=== PATIENT | male | born 1985 | race Caucasian/White ===

== ENCOUNTER 2020-09-02 20:12 | Emergency (ER) | payer BC, SELFPAY ==
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
[2020-09-02 20:16] VITALS: BP 124/56; PULSE 75; RESP 18; TEMP 36.6; O2SAT 99
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
[2020-09-02] MEDS: Ibuprofen 600 MG TAB PO (20:35)
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
== END 2020-09-02 21:30 | disposition home or self-care (01) ==
PROVIDERS: Emergency Provider Physician Assistant
DX: S42.032A Displaced fracture of lateral end of left clavicle, initial encounter for closed fracture (principal); V18.0XXA Pedal cycle driver injured in noncollision transport accident in nontraffic accident, initial encounter; Y93.55 Activity, bike riding
CPT/HCPCS: 23500; 73000